=== PATIENT | male | born 1990 | race Caucasian/White ===

== ENCOUNTER 2016-12-17 15:37 | Emergency (ER) | payer BC ==
[2016-12-17 15:52] VITALS: BP 143/94
[2016-12-17] MEDS ORDERED: Ketorolac 60 MG/2 ML SDV IM ONE (16:25)
[2016-12-17] MEDS ORDERED: Cyclobenzaprine 10 MG Tab PO ONE (16:25)
--- NOTE | 2016-12-17 16:29 | EDM.PDOC ---
ED HPI GENERAL MEDICAL PROBLEM - General Chief Complaint: Back Pain or Injury Stated Complaint: BACK PAIN Time Seen by Provider: 12/17/16 16:09 Source of Information: Reports: Patient History Limitations: Reports: No Limitations - History of Present Illness INITIAL COMMENTS - FREE TEXT/NARRATIVE: 26 yo male presents with left upper back pain and ABD bloating. Has been seeing PT for back pain. Has not been taking home medication. He feels the pain has not improved with physical therapy. He also complains of ABD bloating and hard small stools. generally healthy. Back pain has not caused him to miss any days of work. Left Upper Back Pain Score (Numeric/FACES): 8 - Related Data Allergies Allergy/AdvReac Type Severity Reaction Status Date / Time No Known Allergies Allergy Verified 12/17/16 15:58 Home Meds: Home Meds NK [No Known Home Meds] 12/17/16 [History] Past Medical History Cardiovascular History: Reports: Heart Murmur - Infectious Disease History Infectious Disease History: Reports: Chicken Pox Social & Family History - Tobacco Use Smoking Status *Q: Never Smoker Second Hand Smoke Exposure: No - Caffeine Use Caffeine Use: Reports: None - Recreational Drug Use Recreational Drug Use: No ED ROS GENERAL - Review of Systems Review Of Systems: See Below Constitutional: Denies: Fever, Chills Respiratory: Denies: Shortness of Breath, Wheezing Cardiovascular: Denies: Chest Pain GI/Abdominal: Reports: Abdominal Pain, Distension, Flatus Musculoskeletal: Reports: Back Pain ED EXAM, GI/ABD - Physical Exam Exam: See Below Exam Limited By: No Limitations General Appearance: Alert, WD/WN, No Apparent Distress Head: Atraumatic, Normocephalic Neck: Normal Inspection, Supple, Non-Tender, Full Range of Motion Respiratory/Chest: No Respiratory Distress, Lungs Clear, Normal Breath Sounds, No Accessory Muscle Use, Chest Non-Tender Cardiovascular: Normal Peripheral Pulses, Regular Rate, Rhythm, No Edema, No Murmur GI/Abdominal: Soft, Non-Tender, No Distention, Hyperactive Bowel Sounds (more on left then right) Back Exam: Full Range of Motion, Paraspinal Tenderness (left thoratic T4-T5 radiating into shoulder), Other (SLR negative). No: CVA Tenderness (R), CVA Tenderness (L), Vertebral Tenderness Neurological: Alert, Oriented, Normal Cognition, Normal Gait Course - Vital Signs Last Recorded V/S: Last Vital Signs Temp 36.4 C 12/17/16 16:01 Pulse 73 12/17/16 16:01 Resp 14 12/17/16 16:01 BP 143/94 H 12/17/16 16:01 Pulse Ox 97 12/17/16 16:01 - Orders/Labs/Meds Orders: Active Orders 24 hr Category Date Time Status Abdomen 2V AP Flat Upright [CR] Stat Exams 12/17/16 16:24 Taken Meds: Medications Discontinued Medications Generic Name Dose Route Start Last Admin Trade Name Pete PRN Reason Stop Dose Admin Cyclobenzaprine HCl 10 mg 12/17/16 16:25 12/17/16 16:57 Flexeril PO 12/17/16 16:26 10 mg ONETIME ONE Administration Ketorolac Tromethamine 60 mg 12/17/16 16:25 12/17/16 16:57 Toradol IM 12/17/16 16:26 60 mg ONETIME ONE Administration - Re-Assessments/Exams Free Text/Narrative Re-Assessment/Exam: 12/17/16 17:07 oral and IM medication relieved pain. No longer having ABD bloating. discussed home medication of ibuprofen 400-600 mg every 6 hours for pain, cyclobenzaprine 10 mg nightly. massage. alternating hot and cold compress. Follow-up with primary care 12/17/16 17:12 Departure - Departure Time of Disposition: 17:09 Disposition: Home, Self-Care 01 Condition: Good Clinical Impression: Constipation Qualifiers: Constipation type: slow transit constipation Qualified Code(s): K59.01 - Slow transit constipation Thoracic back pain Qualifiers: Chronicity: acute Back pain laterality: left Qualified Code(s): M54.6 - Pain in thoracic spine - Discharge Information Referrals: PCP,None [Primary Care Provider] - Forms: ED Department Discharge Additional Instructions: back pain: ibuprofen 400-600 mg every 6 hours for pain, cyclobenzaprine 10 mg nightly. massage. alternating hot and cold compress. constipation - increase fluid intake with goal of 1.5-2 liters per day. increase fiber with whole grains, fruits and vegetables. May also use miralax for constipation relief - My Orders Last 24 Hours: My Active Orders 12/17/16 16:24 Abdomen 2V AP Flat Upright [CR] Stat - Assessment/Plan Last 24 Hours: My Active Orders 12/17/16 16:24 Abdomen 2V AP Flat Upright [CR] Stat
--- NOTE | 2016-12-19 08:30 | CR ---
Abdomen 2V AP Flat Upright HISTORY: bloating constipation FINDINGS: Bowel gas pattern is nonspecific. No obstruction or free air is identified. No soft tissue mass, org anomegaly, or abnormal calcifications are seen. Bony structures are unremarkable. IMPRESSION: Nonspecific abdomen. No signs of constipation.
== END 2016-12-17 17:29 | disposition home or self-care (01) ==
LOC: JP.ED 15:37
DX: K59.01 Slow transit constipation (principal); M54.6 Pain in thoracic spine
CPT/HCPCS: 74020; 96372; 99284; A9270; J1885

== ENCOUNTER 2020-01-15 10:50 | Emergency (ER) | payer BC, OTHER ==
[2020-01-15 11:13] VITALS: BP 124/79; PULSE 56
--- NOTE | 2020-01-15 11:19 | EDM.PDOC ---
ED HPI GENERAL MEDICAL PROBLEM - General Chief Complaint: Upper Extremity Injury/Pain Stated Complaint: RIGHT INDEX FINGER LACERATION Time Seen by Provider: 01/15/20 11:05 Source of Information: Reports: Patient, Old Records, RN History Limitations: Reports: No Limitations - History of Present Illness INITIAL COMMENTS - FREE TEXT/NARRATIVE: 29 yo male got his distal R index finger in a shingle conveyor this morning. This device pulled his glove off of his hand and took the fingernail with it. Is not sure of the timing of his last tetanus booster. Is here for evaluation and tx. Onset: Today Onset Date: 01/15/20 Onset Time: 10:30 Duration: Minutes: Location: Reports: Upper Extremity, Right Quality: Reports: Burning Severity: Mild Improves with: Reports: None Worsens with: Reports: Other (touching wound) Context: Reports: Trauma Associated Symptoms: Reports: No Other Symptoms Treatments PHYSICIAN SCRIBE: Reports: Other (see below) (dressing applied) - Related Data Allergies Allergy/AdvReac Type Severity Reaction Status Date / Time No Known Allergies Allergy Verified 01/15/20 11:08 Home Meds: Home Meds NK [No Known Home Meds] 12/17/16 [History] Past Medical History Cardiovascular History: Reports: Heart Murmur - Infectious Disease History Infectious Disease History: Reports: Chicken Pox Social & Family History - Caffeine Use Caffeine Use: Reports: None Review of Systems - Review of Systems Review Of Systems: See Below Constitutional: Reports: No Symptoms Musculoskeletal: Reports: No Symptoms Skin: Reports: Wound (R index finger nail completely avulsed. No active bleeding. ) Neurological: Reports: No Symptoms ED EXAM, GENERAL - Physical Exam Exam: See Below Exam Limited By: No Limitations General Appearance: Alert, WD/WN, No Apparent Distress Extremities: Normal Range of Motion, No Pedal Edema, Other (R index fingernail missing.). No: Normal Inspection, Non-Tender, Pedal Edema, Increased Warmth, Redness Neurological: Alert, Oriented, CN II-XII Intact, Normal Cognition, No Motor/Sensory Deficits Psychiatric: Normal Affect, Normal Mood Skin Exam: Warm, Dry, Normal Color, No Rash, Wound/Incision (R index fingernail is avulsed. No active bleeding. No swelling of distal pad. No bone exposed. ) Course - Vital Signs Last Recorded V/S: Last Vital Signs Temp 35.7 C L 07/15/20 11:21 Pulse 56 L 01/15/20 11:21 Resp 16 01/15/20 11:21 BP 124/79 01/15/20 11:21 Pulse Ox 99 01/15/20 11:21 - Orders/Labs/Meds Orders: Active Orders 24 hr Category Date Time Status Vaccines to be Administered [RC] PER UNIT ROUTINE Care 01/15/20 11:13 Active Fingers Second Digit Rt F6 [CR] Stat Exams 01/15/20 11:13 Ordered Acetaminophen/HYDROcodone [[place] 325-5 MG] Med 01/15/20 11:33 Once 1 tab PO ONETIME ONE Meds: Medications Discontinued Medications Generic Name Dose Route Start Last Admin Trade Name Freq PRN Reason Stop Dose Admin Bacitracin 1 dose 01/15/20 11:14 01/15/20 11:31 Bacitracin Oint 1 Gm TOP 01/15/20 11:15 1 dose ONETIME ONE Administration Cephalexin 500 mg 01/15/20 11:32 Keflex PO 01/15/20 11:33 ONETIME ONE Diphtheria/Tetanus/Acell Pertussis 0.5 ml 01/15/20 11:13 01/15/20 11:30 Adacel IM 01/15/20 11:14 0.5 ml .ONCE ONE Administration - Radiology Interpretation Free Text/Narrative:: R index finger X-ray-Tuft fx Departure - Departure Time of Disposition: 11:50 Disposition: Home, Self-Care 01 Condition: Fair Clinical Impression: Open fracture of tuft of distal phalanx of finger Fingernail avulsion, complete Qualifiers: Encounter type: initial encounter Qualified Code(s): S61.309A - Unspecified open wound of unspecified finger with damage to nail, initial encounter - Discharge Information *PRESCRIPTION DRUG MONITORING PROGRAM REVIEWED*: No *COPY OF PRESCRIPTION DRUG MONITORING REPORT IN PATIENT IZZY: No Instructions: Finger Fracture, Adult, [id number] Referrals: PCP,None [Primary Care Provider] - Forms: ED Department Discharge Additional Instructions: Take cephalexin as directed to prevent infection. Keep wound clean for 3 days and elevated for 24 hrs. Take ibuprofen and/or acetaminophen for pain relief as needed. Leave today's dressing on for 24 hrs, then remove dressing and clean wound with 1/2 water and 1/2 peroxide every 12 hrs. Dry. Apply antibiotic ointment and a new dressing. Recheck for signs of infection. Sepsis Event Note (ED) - Focused Exam Vital Signs: Vital Signs Temp Pulse Resp BP Pulse Ox 01/15/20 11:21 35.7 C L 56 L 16 124/79 99 01/15/20 11:08 35.7 C L 56 L 16 124/79 99 - My Orders Last 24 Hours: My Active Orders 01/15/20 11:13 Vaccines to be Administered [RC] PER UNIT ROUTINE Fingers Second Digit Rt F6 [CR] Stat 01/15/20 11:33 Acetaminophen/HYDROcodone [[place] 325-5 MG] 1 tab PO ONETIME ONE - Assessment/Plan Last 24 Hours: My Active Orders 01/15/20 11:13 Vaccines to be Administered [RC] PER UNIT ROUTINE Fingers Second Digit Rt F6 [CR] Stat 01/15/20 11:33 Acetaminophen/HYDROcodone [Turney 325-5 MG] 1 tab PO ONETIME ONE
[2020-01-15] MEDS: Diphtheria,Pertussis(Acell),Tetanus Vaccine 0.5 ML SDV IM ONE (11:30)
[2020-01-15] MEDS: Bacitracin Oint 1 GM U/D Packet TOP ONE (11:31)
[2020-01-15] MEDS: Acetaminophen/HYDROcodone 325-5 MG Tab PO ONE (11:39)
[2020-01-15] MEDS: Cephalexin 250 MG Cap PO ONE (11:40)
--- NOTE | 2020-01-15 13:33 | CR ---
Fingers Second Digit Rt F6 CLINICAL HISTORY: Trauma FINDINGS: There is a minimally displaced tuft fracture of the second distal phalanx IMPRESSION: Tuft Fracture
== END 2020-01-15 11:49 | disposition home or self-care (01) ==
LOC: JP.ED 10:50
DX: S62.630B Displaced fracture of distal phalanx of right index finger, initial encounter for open fracture (principal); Z23 Encounter for immunization; W24.1XXA Contact with transmission devices, not elsewhere classified, initial encounter
CPT/HCPCS: 73140; 90471; 90715; 99283; A9270

== ENCOUNTER 2025-04-20 15:52 | Emergency (ER) | payer BC ==
[2025-04-20 17:40] VITALS: BP 130/85; PULSE 63
[2025-04-20] MEDS: Bacitracin Oint 1 GM U/D Packet TOP ONE (17:57)
== END 2025-04-20 18:15 | disposition home or self-care (01) ==
LOC: JP.ED 15:52
DX: S61.211A Laceration without foreign body of left index finger without damage to nail, initial encounter (principal); W45.8XXA Other foreign body or object entering through skin, initial encounter
CPT/HCPCS: 99282